=== PATIENT | male | born 1935 | race Caucasian/White ===

== ENCOUNTER 2018-08-30 13:50 | Inpatient (IN) ==
[2018-08-30 15:00] LABS: HEMATOCRIT 46.8 % (42.0-52.0); HEMOGLOBIN 16.3 g/dL (14.0-18.0); MCHC 34.8 g/dL (33-37); MCV 94.7 FL (81-99); MPV 9.7 FL (7.4-10.4); NEUT% 87.7 % (42.2-75.2); PLT 233 X1000 (130-400); RBC 4.94 XMIL (4.7-6.1); RDW 13.4 % (11.5-14.5); WBC 10.27 X1000 (4.8-10.8)
[2018-08-30 15:01] LABS: BASO# 0.02 X1000 (0.0-0.2); BASO% 0.2 % (0.0-0.8); IMM GRAN# 0.03 X1000 (0.0-0.04); IMM GRAN% 0.3 % (0.0-0.5); LYMPH# 0.58 X1000 (1.2-3.4); LYMPH% 5.6 % (20.5-51.1); MONO# 0.64 X1000 (0.11-0.59); MONO% 6.2 % (1.7-9.3)
[2018-08-30 15:02] LABS: INR 0.86; PROTIME 12.4 Seconds (11.0-16.0)
[2018-08-30 15:03] LABS: PTT 26.3 Seconds (22.3-41.8)
[2018-08-30 15:14] LABS: ALB/GLOB RATIO 2.3; ALBUMIN 4.2 g/dL (3.5-5.0); CALCIUM 10.2 mg/dL (8.8-10.2); CREATININE 1.4 mg/dL (0.7-1.2); POTASSIUM 4.2 mmol/L (3.5-5.1); TOTAL BILIRUBIN 0.74 mg/dL (0.20-1.00)
[2018-08-30] MEDS: ZOFRAN IV PRN (15:44)
[2018-08-30] MEDS: NS 1,000 ML IV SCH (15:44)
--- NOTE | 2018-08-30 16:36 | Diag Imaging Result Doc PS360 ---
EXAM: CT ABD/PELVIS W/ORAL CONT ONLY HISTORY: Intractable abdominal pain, N, V/ suspect SBO TECHNIQUE: CT abdomen and pelvis with oral contrast only COMPARISON: None. FINDINGS: There is thickening to the wall of the distal esophagus and there is a small hiatal hernia. No calcified gallstones or adjacent inflammation. No focal hepatic abnormality identified on this noncontrasted exam. The spleen is not enlarged. There is a small amount of fluid about the liver and spleen. Normal pancreas and adrenal glands. There are multiple parapelvic and cortical renal cysts. None measure over 2.5 cm. There is a tiny nonobstructing right renal stone. No hydronephrosis. No aortic aneurysm. Prominent atherosclerosis. There are multiple dilated loops of small bowel. The terminal ileum is not dilated. The colon is not dilated. Oral contrast has not passed through the small bowel. The urinary bladder is moderately distended. There are multiple surgical clips in the pelvis. Fat filled right inguinal hernia. IMPRESSION: 1.Early or partial small bowel obstruction. Transition point appears to be in the right lower quadrant. 2.Small amount of abdominal and pelvic ascites 3.Thickening to the wall of the distal esophagus with a small hiatal hernia 4.Nonobstructing right renal stone This exam was performed using automated exposure control, adjustment of mA or kV according to patient size, and/or use of iterative reconstruction technique. Electronically signed by Hussein Lara 08/30/2018 4:33 PM
[2018-08-30] MEDS ORDERED: PHENERGAN IV PRN ×2 (17:58→18:04)
[2018-08-30] MEDS ORDERED: ZOFRAN IV ONE (17:58)
[2018-08-30] MEDS ORDERED: SODIUM CHLORIDE 0.9% INJ PRN (17:58)
--- NOTE | 2018-08-30 21:51 | HISTORY AND PHYSICAL ---
PRIMARY CARE PHYSICIAN: Dr. Jeffy Ding. CHIEF COMPLAINT: Intractable abdominal pain, nausea, and vomiting. HISTORY OF PRESENT ILLNESS: An 83-year-old white male with a complicated past medical history presents for evaluation of above-mentioned symptoms. Pertinent history of present illness began on Sunday. At that time, patient states that he worked in his garden all day. By the evening, patient states he noted mild discomfort in his abdomen. Upon waking on , patient states his overall condition had progressed. The patient states he attempted to eat breakfast, but vomited immediately. Throughout the day, he attempted p.o. intake on several occasions, but unfortunately each of these resulted in vomiting. He noted a modest abdominal discomfort, but this was not intractable. The patient states his condition progressed yesterday evening with more intractable pain. The patient was driven to the emergency department but by the time he arrived, his pain had improved. He returned home. Today, he again awoke unable to tolerate p.o. He had not passed flatus or had a bowel movement since Sunday. Because of his progressive symptoms, he presented to my office. Upon arrival, examination revealed high-pitched bowel sounds. He was noted to be modestly distended. Patient was admitted to the hospital for full evaluation and management. CT scan was immediately performed which revealed early or partial small bowel obstruction with transition apparently in the right lower quadrant. A small amount of abdominal and pelvic ascites was identified. Thickening to the wall of the distal esophagus with a small hiatal hernia was also noted. The patient will be treated for underlying small-bowel obstruction. Of note, patient denies fevers, chills, dysuria, hematuria, or pyuria. As described above, he has not had a bowel movement or passed flatus since Sunday. PAST MEDICAL HISTORY: 1. Allergic rhinitis. 2. Diverticulosis. 3. History of presumed coronary artery disease with an elevated CT coronary calcium score. 4. History of H pylori status post eradication in 2007. 5. History of a left inguinal hernia repair in 1947, right inguinal hernia repair in 1995, revision left inguinal hernia repair in March 2016 and persistent right inguinal hernia without repeat repair to date. 6. Hyperlipidemia. 7. Hypertension. 8. Impaired fasting glucose. 9. History of borderline MCV. 10. History of melanoma in situ status post resection from the right shoulder in 2011. 11. Mild cognitive impairment. 12. Obstructive sleep apnea. 13. Osteoarthritis of the right knee. 14. History of colonic polyps. 15. History of prostate cancer status post radical prostatectomy in 1995. CURRENT MEDICATIONS: 1. Advil 200 mg daily as needed. 2. Amlodipine 7.5 mg daily. 3. Aspirin 81 mg daily. 4. Atorvastatin 20 mg at bedtime. 5. B complex vitamin daily. 6. Centrum Silver daily. 7. Coenzyme Q10 100 mg daily. 8. Fluticasone nasal spray 2 sprays each nostril daily as needed. 9. Hydrochlorothiazide 25 mg daily. 10. Labetalol 200 mg at bedtime. 11. Micardis 80 mg daily. ALLERGIES: The patient answered no known drug allergies. SOCIAL HISTORY: Patient denies tobacco or illicit drug use. He has approximately 2 glasses of wine per day. 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 He enjoys hunting, fishing, and gardening. He exercises every other day. FAMILY HISTORY: Patient's father passed at age 68 secondary to complications of metastatic prostate cancer. Patient's mother passed at age 81 secondary to complications of a stroke. REVIEW OF SYSTEMS: A 12 point review of systems was performed. Pertinent positives and negatives are noted in history of present illness. PHYSICAL EXAMINATION: VITAL SIGNS: Temperature 97.4 degrees, heart rate 73, respirations 14, blood pressure is 149/87. GENERAL: Well nourished, well developed, no acute distress. HEENT: Normocephalic, atraumatic. Pupils equal, round, react to light. Extraocular muscles intact. Sclerae anicteric. [place] conjunctivae. Oral and nasopharynx clear without exudate. NECK: Supple. No lymphadenopathy. No thyromegaly. No bruits auscultated. CARDIOVASCULAR: Regular rate and rhythm. No significant murmurs, rubs, or gallops. PULMONARY: Clear to auscultation bilaterally. ABDOMEN: Slightly distended. Diffusely tender without significant guarding or rebound. High- pitched bowel sounds. EXTREMITIES: Moves all extremities well. No significant clubbing, cyanosis, or edema. NEUROLOGIC: Cranial nerves 2-12 grossly intact. Motor and sensory grossly intact. PSYCHOLOGIC: Appropriate. LABORATORY DATA: White blood cell count 10.27, hemoglobin 16.3, hematocrit 46.8, platelet count 233,000. PT 12.4, INR 0.86, PTT is 26.3. Sodium 137, potassium 4.3, chloride 96, bicarb 29, BUN 29, creatinine 1.4, glucose 166, calcium 10.2, total bilirubin 0.74, total protein 6.0, albumin 4.2, alkaline phosphatase 116, AST 22, ALT 13, amylase 62, lipase 19. ASSESSMENT AND PLAN: An 83-year-old white male with past medical history as noted presents for evaluation of intractable abdominal discomfort with associated nausea and vomiting. Examination was concerning for small bowel obstruction with high-pitched bowel sounds. CT scan confirmed early or partial small bowel obstruction. Patient will be admitted to the hospital for full evaluation and management of this condition. 1. Admit to General Medicine. 2. Earlier partial small bowel obstruction-at this point, patient is unable tolerate p.o. We will start patient on aggressive but cautious IV hydration. We will treat nausea with as- needed Zofran therapy. At this point, the nausea and abdominal pain does not warrant a nasogastric tube, however we will have a low threshold should his symptoms progress. We will consult Dr. Dao in the a.m. for a surgical opinion. We will remain aware he does have an inguinal hernia on the right side which could be contributing, however this seems less likely without pain in the inguinal region. 3. Intractable nausea and vomiting-this is secondary to small-bowel obstruction. We will treat patient with IV fluids and as-needed Zofran therapy. 4. Hypertension. Patient's blood pressure is slightly elevated. We will continue to hold his medications for now. We will consider alternative agents depending on his blood pressure while hospitalized. 5. Impaired fasting glucose-we will continue to follow serial blood sugars. We will address if necessary. 6. Hyperlipidemia-we will hold patient's atorvastatin for now. 7. Fluid, electrolytes, nutrition. We will monitor electrolytes. Normal saline at 75 mL an hour, n.p.o. 8. Prophylaxis. Patient will be placed on SCDs. cc: Jeffy Ding MD
--- NOTE | 2018-08-31 03:20 | GENERAL SURGERY CONSULTATION ---
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 Rosa, who presents with approximately 48 hours of nausea, vomiting, and diminished bowel movements and flatus. He worked out in the yard on Sunday, became nauseated on , not really keeping anything down. He came to Dr. Aguayo's office today, he had contemplated ER visit, where CT scan was obtained that was consistent with partial obstruction. MEDICAL HISTORY: Has some early dementia, history of prostate cancer treated in the , he has also had recurrent hernias. SURGICAL HISTORY: He has had an open prostatectomy and, apparently, an appendectomy concurrently with this. He has had childhood right inguinal hernia and a subsequent repair in the , and a left inguinal hernia repair by Dr. Ram. SOCIAL HISTORY: No tobacco, alcohol, or drugs. He is . 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 FAMILY HISTORY: Reviewed. REVIEW OF SYSTEMS: Ten point negative. PHYSICAL EXAMINATION: Vital signs: Temperature 98.4 degrees, pulse 66, blood pressure 136/86, oxygen saturation 93% on room air. General: He is alert, no acute distress. HEENT: There is no scleral icterus. No cervical masses. Cardiovascular: Normal rate. Pulmonary: No increased work of breathing. Abdomen: Mildly distended, but soft, nontender. Integument: Warm and dry. He has a reducible right inguinal hernia. No left inguinal hernia noted. Peripheral vascular: Warm, well perfused. No lower extremity edema. Psychiatric: Appropriate affect. Neurological: He seemed appropriate, maybe some confusion at times. LABS: White count 10, hematocrit 46, platelets 233,000. Creatinine is 1.4 glucose 166. Albumin, amylase and lipase are within normal limits. LFTs are normal. I reviewed a CT scan that shows a transition point in the distal terminal ileum. He has some nonspecific fluid in the pelvis. ASSESSMENT AND PLAN: This is a 83-year-old gentleman with an apparent bowel obstruction. No further emesis, although he does have some hiccups. Currently, his exam is benign. We will observe him. If he were to vomit, we will need to place a nasogastric tube. I discussed the plans for nonoperative management with possible exploration if he were to continue to have obstructive symptoms despite a trial at bowel rest. We will keep him NPO. I have talked to Dr. Ding about the plan and will continue to monitor him going forward. cc: MD Jeffy Lind MD
[2018-08-31] MEDS: ZOFRAN IV PRN (03:35)
[2018-08-31] MEDS: NS 1,000 ML IV SCH ×2 (03:35→17:52)
--- NOTE | 2018-08-31 13:53 | PROGRESS NOTE ---
DATE: 08/31/2018 SUBJECTIVE: The patient was admitted yesterday with an early or partial small bowel obstruction. The patient was treated supportively with IV fluids and IV antiemetics. Unfortunately, despite this, patient continues to have increasing symptoms. Overnight, he vomited once. He also vomited this morning. He does note a slight increase in his abdominal distention, as well as some increasing pain. He denies fevers, chills, shortness of breath, or chest discomfort. OBJECTIVE: Vital Signs: T-max 98.4 degrees, heart rate 63 to 86 respirations 14 to 22, blood pressure 136 to 157 over 82 to 88. General: Well nourished, well developed, no acute distress. Cardiovascular: Regular rate and rhythm. No significant murmurs, rubs, or gallops. Pulmonary: Clear to auscultation bilaterally. Abdomen: Slightly distended. High-pitched bowel sounds. Mild tenderness diffusely without guarding or rebound. Extremities: Moves all extremities well. No significant clubbing, cyanosis, or edema. Dermatologic: Evaluation reveals no evidence of rash. LABORATORY DATA: None. ASSESSMENT AND PLAN: 1. Early or partial small bowel obstruction--unfortunately, patient is having increasing symptoms. Including abdominal distention and nausea/vomiting. The patient has not passed flatus or had a bowel movement. At this point, with progression of symptoms, we will have a nasogastric tube placed to intermittent low wall suction. I appreciate Dr. Dao's consultation. We will continue supportive care, but if the patient does not clear this in the next 48 hours, we will consider whether surgical intervention is appropriate. 2. Intractable nausea and vomiting--this is secondary to his small bowel obstruction. We will treat patient with nasogastric tube suction, as well as needed antiemetic agents. 3. Hypertension--the patient's blood pressure is moderately elevated today. At this point, we will continue to follow clinically as he is not taking oral. If this continues to rise, we will consider alternative agents. 4. Impaired fasting glucose--we will continue to follow patient's blood sugars while hospitalized. No intervention has been necessary today. 5. Hyperlipidemia--we will continue to hold patient's atorvastatin therapy. 6. Disposition--at this point, patient continues to require mcc care in a hospital setting. We will plan discharge home once appropriate. cc: Jeffy Ding MD
--- NOTE | 2018-08-31 18:26 | GENERAL SURGERY PROGRESS NOTE ---
DATE: 08/31/2018 SUBJECTIVE: He continues to have some belching. He had an episode of emesis overnight. No pain. No bowel function. No fevers. No tachycardia. OBJECTIVE: Blood pressure 157/82. General: He is alert. Abdomen is soft, mildly distended, stable from last night, nontender. Integument is warm and dry. LABORATORY DATA: Nothing new this morning. ASSESSMENT AND PLAN: An 83-year-old gentleman with a bowel obstruction. I have recommended nasogastric tube. He wants to wait a few hours, but unless he has dramatic return of bowel function, I think he is going to require it. I talked to Dr. Ding. As exam is benign, we will continue nonoperative management. cc: MD Jeffy Lind MD
[2018-09-01 06:41] LABS: BASO# 0.02 X1000 (0.0-0.2); BASO% 0.3 % (0.0-0.8); EOS# 0.08 X1000 (0.0-0.7); EOS% 1.2 % (0.0-10.0); HEMATOCRIT 43.5 % (42.0-52.0); HEMOGLOBIN 14.7 g/dL (14.0-18.0); IMM GRAN# 0.02 X1000 (0.0-0.04); IMM GRAN% 0.3 % (0.0-0.5); LYMPH# 0.66 X1000 (1.2-3.4); LYMPH% 10.2 % (20.5-51.1); MCH 32.7 PG (27-31); MCHC 33.8 g/dL (33-37); MCV 96.9 FL (81-99); MONO# 1.07 X1000 (0.11-0.59); MONO% 16.6 % (1.7-9.3); NEUT# 4.61 X1000 (1.4-6.5); NEUT% 71.4 % (42.2-75.2); PLT 212 X1000 (130-400); RBC 4.49 XMIL (4.7-6.1); RDW 13.6 % (11.5-14.5); WBC 6.46 X1000 (4.8-10.8)
[2018-09-01 07:08] LABS: ALB/GLOB RATIO 1.8; ALBUMIN 3.3 g/dL (3.5-5.0); CALCIUM 8.9 mg/dL (8.8-10.2); CREATININE 1.2 mg/dL (0.7-1.2); POTASSIUM 3.7 mmol/L (3.5-5.1); TOTAL BILIRUBIN 0.78 mg/dL (0.20-1.00); TOTAL PROTEIN 5.1 g/dL (6.3-8.3)
[2018-09-01] MEDS: NS 1,000 ML IV SCH (09:14)
--- NOTE | 2018-09-01 11:46 | GENERAL SURGERY PROGRESS NOTE ---
DATE: 09/01/2018 SUBJECTIVE: Had flatus overnight. His NG tube was pulled out by accident but, overall, he is doing well. No more nausea. Less bloated. No fevers. No tachycardia. OBJECTIVE: General: He is alert. Cardiovascular: Normal rate. Abdomen: Soft, nontender, nondistended. I reviewed his labs from today. His potassium is a little low at 3.7, creatinine is 1.2. His magnesium is 2.1. ASSESSMENT AND PLAN: This is an 83-year-old gentleman with apparent resolving bowel obstruction. We will keep him nothing per oral today, give him clear liquids tomorrow if he tolerates nasogastric tube removal. cc: MD Jeffy Lind MD
--- NOTE | 2018-09-01 12:01 | PROGRESS NOTE ---
DATE: 09/01/2018 SUBJECTIVE: Upon my arrival this morning, the patient states that overall, he was feeling improved from yesterday. In summary, over the last 24 hours, an NG tube was placed. The patient tolerated this quite well. The patient did note improvement in his overall condition. He passed minimal flatus while having the NG tube. Overnight, the patient unfortunately became confused during a dream, and self-discontinued his NG tube. Thereafter, the patient states he has done reasonably well. He denies nausea or vomiting. He has passed more flatus; however, not back to baseline. He denies fevers, chills, shortness of breath, or chest discomfort. OBJECTIVE: Vital Signs: T-max 98.8 degrees, heart rate 71 to 85, respirations 14 to 20, blood pressure 124 to 148/86 to 97. General: No acute distress. Cardiovascular: Regular rate and rhythm. No significant murmurs, rubs, or gallops. Pulmonary: Clear to auscultation bilaterally. Abdomen: Slightly distended. No significant tenderness to palpation. Bowel sounds have improved from yesterday, but continue to be slightly high pitched. Extremities: Moves all extremities well. No significant clubbing, cyanosis, or edema. Dermatologic: No evidence of rash. LABORATORY DATA: White blood cell count 6.46, hemoglobin 14.7, hematocrit 43.5, platelet count 212,000. Sodium 146, potassium 3.7, chloride 105, bicarb 31, BUN 30, creatinine 1.2, glucose 99, calcium 8.9. Magnesium 2.1. Total bilirubin 0.78, total protein 5.1, albumin 3.3, alkaline phosphatase 83, AST 18, ALT 10. ASSESSMENT AND PLAN: 1. Earlier partial small-bowel obstruction. As above, nasogastric tube was placed yesterday, but was self-discontinued overnight. As the patient is beginning to pass flatus and denies significant nausea, vomiting, or abdominal pain at the present time, we will continue to hold nasogastric tube suction. We will monitor the patient closely over the next 12 to 24 hours. If he continues to pass routine flatus, we will consider advancing diet. I appreciate Dr. Dao's consultation. 2. Intractable nausea and vomiting. As above, this has improved. We will continue symptomatic management for now. We will hold nasogastric tube suction for now. 3. Hypertension. The patient's blood pressure medications have been held. Blood pressure has been slightly elevated, but acceptable. We will continue to hold his medications for now. 4. Impaired fasting glucose. We will continue to monitor the patient's blood glucose levels. No intervention has been deemed warranted today. 5. Hyperlipidemia. We will continue to hold atorvastatin therapy. 6. Weakness. We will encourage activity and up in chair today. I suspect that with further movement, this may assist in the resolution of his small-bowel obstruction. 7. Disposition. At this point, the patient continues to require custodial care in a hospital setting. We will plan discharge home once appropriate. cc: Jeffy Ding MD
[2018-09-01] MEDS: 1/2 NS 1,000 ML IV SCH (13:30)
[2018-09-02] MEDS: 1/2 NS 1,000 ML IV SCH ×2 (02:45→16:50)
[2018-09-02 06:57] LABS: BASO# 0.02 X1000 (0.0-0.2); BASO% 0.4 % (0.0-0.8); EOS# 0.05 X1000 (0.0-0.7); EOS% 0.9 % (0.0-10.0); HEMATOCRIT 47.9 % (42.0-52.0); HEMOGLOBIN 16.3 g/dL (14.0-18.0); LYMPH# 0.48 X1000 (1.2-3.4); LYMPH% 9.1 % (20.5-51.1); MCH 32.6 PG (27-31); MCV 95.8 FL (81-99); MONO# 0.96 X1000 (0.11-0.59); MONO% 18.1 % (1.7-9.3); MPV 9.9 FL (7.4-10.4); NEUT# 3.79 X1000 (1.4-6.5); NEUT% 71.5 % (42.2-75.2); PLT 216 X1000 (130-400); RDW 13.6 % (11.5-14.5)
[2018-09-02 07:15] LABS: CALCIUM 9.1 mg/dL (8.8-10.2); CREATININE 1.2 mg/dL (0.7-1.2); POTASSIUM 3.5 mmol/L (3.5-5.1)
--- NOTE | 2018-09-02 16:31 | GENERAL SURGERY PROGRESS NOTE ---
DATE: 09/02/2018 SUBJECTIVE: His NG tube was placed last back last night, apparently for abdominal distention. He continues to pass flatus. No pain. No fevers. No tachycardia. OBJECTIVE: Blood pressure 156/92, O2 saturation is 94%. General: He is alert. Abdomen is soft. It is mildly distended, but no change from previous. Integument is warm and dry. DIAGNOSTIC STUDIES: White count 5, hematocrit 47. Creatinine is 1.2, potassium 3.5. I have ordered a small bowel follow-through, but this is pending. ASSESSMENT AND PLAN: This is an 83-year-old gentleman with partial obstruction. NG tube is in place. We will keep it since it is there for now, and I will get a small-bowel follow-through with contrast through the NG tube. If he shows no complete obstruction, we will continue to observe. Otherwise, if he shows a high-grade obstruction, we will plan for exploration in the next 24 to 48 hours. I have talked to Dr. Ding about this, as well as the patient. cc: MD Jeffy Lind MD
--- NOTE | 2018-09-02 18:29 | Diag Imaging Result Doc PS360 ---
EXAM: SMALL BOWEL SERIES ONLY 09/02/2018 HISTORY: Small bowel obstruction TECHNIQUE: Eight images. COMMENT: The study was carried out to six hours. At this time there is contrast throughout much of the small bowel with stool seen in the ascending colon. The entire visualized small bowel is distended. There is no evidence of mucosal fold thickening. The appearance is consistent with obstruction of the distal jejunum or proximal ileum as was demonstrated at the time the previous CT of the abdomen on 08/30/2018. IMPRESSION: Distal small bowel obstruction. Electronically signed by Russell Resendiz 09/02/2018 6:27 PM
--- NOTE | 2018-09-02 21:38 | PROGRESS NOTE ---
DATE: 09/02/2018 Upon my arrival this morning, patient had his NG tube replaced. The patient noted to have passed flatus. Later in the morning, patient did continue to have abdominal discomfort. A small-bowel followthrough was ordered. Small-bowel followthrough revealed a distal small-bowel obstruction. This evening, upon my arrival, patient continued to have abdominal distension. He does note having had a bowel movement. He is passing minimal flatus. He denies fevers, chills, shortness of breath, or chest discomfort. The patient does continue to have nausea and experienced an episode of vomiting while his NG tube was clamped. OBJECTIVE: T-max 98.4 degrees, heart rate 84 to 90, respirations 18 to 21, blood pressure 138 to 167 over 91 to 100.General: No acute distress. Cardiovascular: Regular rate and rhythm. No significant murmurs, rubs, or gallops. Pulmonary: Clear to auscultation bilaterally. Abdomen: Slightly distended. Mild tenderness diffusely. Improved bowel sounds. Extremities: Moves all extremities well. No significant clubbing, cyanosis, or edema. Dermatologic: Evaluation reveals no evidence of rash. LABORATORY DATA: White blood cell count 5.30, hemoglobin 16.3, hematocrit 47.9, platelet count 219,000. Sodium 147, potassium 3.5, chloride 103, bicarb 29, BUN 32, creatinine 1.2. Glucose 97, calcium 9.1. ASSESSMENT AND PLAN: 1. Small bowel obstruction-unfortunately, patient has not cleared this since hospitalization. He is passing a minimal amount of flatus and had a bowel movement, however, there does appear to be a persistent obstruction. I discussed case with Dr. Dao. Should patient not resolve this overnight, we will plan surgical intervention in the near future. 2. Intractable nausea and vomiting-patient has a nasogastric tube placed. We will continue this to intermittent low wall suction. 3. Hypertension-patient's blood pressure medications have been held. Blood pressure is slightly elevated. We will resume this once able. 4. Impaired fasting glucose-patient's glucose has been acceptable while hospitalized. We will remain aware. 5. Hyperlipidemia-patient's atorvastatin has been held. 6. Weakness-we will continue to encourage activity as tolerated. 7. Hypernatremia-patient was transitioned to half-normal saline yesterday. We will convert patient to Clinimix this evening. 8. Disposition-at this point, patient continues to require residential care in a hospital setting. We will plan discharge home once appropriate. cc: Jeffy Ding MD
[2018-09-02] MEDS: ZOFRAN IV PRN (23:49)
[2018-09-03] MEDS: SODIUM CHLORIDE IV SCH (06:43)
[2018-09-03] MEDS: CLINIMIX E IV SCH (06:43)
[2018-09-03] MEDS ORDERED: XYLOCAINE-MPF 2% ONE (07:39)
[2018-09-03] MEDS ORDERED: QUELICIN (DOSE) ONE (07:39)
[2018-09-03] MEDS ORDERED: DIPRIVAN 1% ONE (07:39)
--- NOTE | 2018-09-03 07:47 | GENERAL SURGERY CONSULTATION ---
DATE: 09/03/2018 SUBJECTIVE: Remains distended, having some colicky discomfort overnight. NG tube is in place with bilious output. On exam, he is afebrile. No tachycardia. He is sitting on the side of bed. His abdomen is soft. Blood pressure 148/97. He is mildly distended. Integument is warm and dry. He had labs yesterday that showed a normal white count. Creatinine was down to 1.2. Small-bowel follow-through shows high-grade distal small-bowel obstruction. ASSESSMENT AND PLAN: An 83-year-old gentleman with persistent bowel obstruction despite trials of nasogastric tube decompression and nonoperative management. I have discussed risks of bleeding, infection, possible bowel resection, and all indicated procedures. He has agreed to proceed today with exploratory laparotomy. 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 We have him on the schedule for later today. I have talked to Dr. Ding. cc: MD Jeffy Lind MD
[2018-09-03 07:57] LABS: CALCIUM 9.3 mg/dL (8.8-10.2); CREATININE 1.2 mg/dL (0.7-1.2); POTASSIUM 3.3 mmol/L (3.5-5.1)
[2018-09-03] MEDS ORDERED: EXPAREL 1.3% ONE (08:18)
[2018-09-03] MEDS ORDERED: MARCAINE 0.5% PF ONE (08:18)
[2018-09-03] MEDS ORDERED: INVANZ 1 GM/NS 1 GM/50 ML IVPB IV ONE (08:45)
[2018-09-03] MEDS ORDERED: EPHEDRINE ONE (09:26)
[2018-09-03] MEDS ORDERED: ZOFRAN ONE (09:35)
[2018-09-03] MEDS ORDERED: DECADRON ONE (09:35)
[2018-09-03] MEDS ORDERED: ROBINUL ONE (09:35)
[2018-09-03] MEDS ORDERED: NEOSTIGMINE ONE (09:36)
[2018-09-03] MEDS ORDERED: NEO-SYNEPHRINE ONE (09:40)
[2018-09-03 09:43] LABS: URINE SOURCE CATH
[2018-09-03 09:49] LABS: BILIRUBIN URINE SMALL (NEGATIVE); BLOOD URINE NEGATIVE (NEGATIVE); COLOR YELLOW; GLUCOSE URINE NEGATIVE (NEGATIVE); KETONE URINE 40 mg/dL (NEGATIVE); LEUKOCYTES URINE NEGATIVE (NEGATIVE); NITRITE URINE NEGATIVE (NEGATIVE); PH URINE 5.5; PROTEIN URINE 100 mg/dL (NEGATIVE); SP GRAVITY URINE 1.029; TURBIDITY URINE CLEAR (CLEAR); UROBILINOGEN URINE 2 mg/dL (NORMAL)
[2018-09-03 09:52] LABS: UR EPITHELIAL CELLS <10 /HPF (<10); URINE BACTERIA NEGATIVE /HPF; URINE RBC <10 /HPF (<10); URINE WBC <10 /HPF (<10)
[2018-09-03 10:02] LABS: URINE CASTS NONE SEEN
[2018-09-03] MEDS ORDERED: MORPHINE IV PRN (11:04)
[2018-09-03] MEDS: POTASSIUM CHLORIDE 20 MEQ/SWI 20 MEQ/100 ML IVPB IV SCH ×2 (11:46→15:59)
[2018-09-03] MEDS: LR 1,000 ML IV SCH (11:47)
--- NOTE | 2018-09-03 13:31 | OPERATIVE NOTE ---
PROCEDURE DATE: 09/03/2018 PREOPERATIVE DIAGNOSIS: Small-bowel obstruction. POSTOPERATIVE DIAGNOSIS: Small-bowel obstruction. PROCEDURE PERFORMED: Exploratory laparotomy and lysis of adhesions. ESTIMATED BLOOD LOSS: 20 mL. SPECIMENS: None. ANESTHESIA: General with a TAP block. 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 Almanza was present and facilitated exposure and identification of anatomy. INDICATIONS: This is an 83-year-old gentleman who has had a bowel obstruction for over the last several days. CT scan shows transition point. Small bowel follow-through showed persistent high- grade obstruction. OPERATIVE FINDINGS: There was a dense fibrotic band adjacent to a Meckel's diverticulum in the distal ileum. Otherwise, no significant intra-abdominal adhesions. Colon was normal. Liver was normal. The stomach was normal. No peritoneal lesions. Operative note, risks, benefits and alternatives were discussed. Patient consented to the procedure preoperatively and surgical site was confirmed. He was taken to the operating room and placed in supine position. General anesthesia induced. A TAP block was performed by Anesthesia. For details, please see dictated operative note. He had a nasogastric tube in place and placed in Aden catheter. The hair was removed with clippers and prepped with chlorhexidine solution and draped in usual sterile fashion. After time-out, a midline incision was made above the umbilicus. He had a lower midline scar and carried this down to the fascia, and incised the fascia along the midline entering the abdomen in an open controlled fashion. There was some reactive looking ascites noted, but no bile. No purulent ascites. We extended our incision cephalad and inferiorly and eviscerated the small bowel. We palpated an area of dense fibrotic band in the right lower quadrant. We mobilized this out. There were several areas of congested bowel here, but this was all well perfused with no ischemia. We lysed this band, freeing the obstruction. There was a wide-mouth Meckel's diverticulum in his area that showed no evidence of perforation. The adhesion was not related to the Meckel's. Appendix was normal. We placed everything back in neutral position, and irrigated the abdomen. We did milk the succus back toward the stomach, and decompressed this out of the nasogastric tube. We confirmed its position, placed omentum over the small bowel. Irrigated the abdomen with warm saline. The fascia was closed with a single strand of #1 PDS suture. After irrigating the superficial wound, we closed the skin with 4-0 Monocryl in subcuticular fashion. Dermabond was applied. He was woken and transferred to recovery room. I spoke to family. cc: MD Jeffy Lind MD
[2018-09-03] MEDS ORDERED: BLISTEX MEDICATED BERRY LIP BALM TOP PRN (16:02)
--- NOTE | 2018-09-03 22:12 | PROGRESS NOTE ---
DATE: 09/03/2018 SUBJECTIVE: This morning, patient was taken for exploratory laparotomy. The patient was found to have a fibrotic band adjacent to a Meckel's diverticulum in the distal ilium. The band was lysed freeing the obstruction. The patient tolerated this procedure quite well. This evening, patient states he is feeling reasonably well. His pain is controlled. He has an NG tube placed. He denies any significant nausea, fevers, chills, or shortness of breath. OBJECTIVE: T-max 98.5 degrees, heart rate 56 to 87, respirations 14 to 19, blood pressure 148 to 162 over 89 to 94.General: Well nourished, well developed, no acute distress. Cardiovascular: Regular rate and rhythm. No significant murmurs, rubs, or gallops. Pulmonary: Clear to auscultation bilaterally. Abdomen: Postoperative tenderness. Decreased bowel sounds. Extremities: Moves all extremities well. No significant clubbing, cyanosis, or edema. Dermatologic: Evaluation reveals no evidence of rash. LABORATORY DATA: Sodium 147, potassium 3.3, chloride 99, bicarb 32, BUN 35, creatinine 1.2, glucose 126, calcium 9.3. ASSESSMENT AND PLAN: 1. Small bowel obstruction - As above, patient is status post lysis of a fibrotic band. He tolerated this quite well. The patient has an NG tube placed. Minimal bowel sounds are appreciated on examination. We will continue postoperative course per Dr. Dao. 2. Intractable nausea and vomiting - The patient has control of symptoms with NG tube suction. We will continue. 3. Hypertension - Blood pressure is slightly elevated. At this point, intervention is not warranted. We will plan to resume his home medications at discharge. 4. Impaired fasting glucose - The patient's glucose has been acceptable while hospitalized. We will follow. 5. Hyperlipidemia - The patient's atorvastatin has been held. 6. Weakness - We will plan for patient to be up in chair tomorrow. We will consider whether physical therapy is appropriate. 7. Hypernatremia - Sodium remains slightly elevated at 147. We will continue to follow. 8. Disposition - At this point, the patient continues to require half-way care in a hospital setting. We will plan discharge home once appropriate. cc: Jeffy Ding MD
[2018-09-04] MEDS: CLINIMIX E IV SCH ×2 (04:30→15:51)
[2018-09-04] MEDS: SODIUM CHLORIDE IV SCH ×2 (04:30→15:51)
[2018-09-04] MEDS: LR 1,000 ML IV SCH (06:22)
[2018-09-04] MEDS ORDERED: LANOXIN IV SCH (09:00)
[2018-09-04 09:17] LABS: BASO# 0.01 X1000 (0.0-0.2); BASO% 0.3 % (0.0-0.8); EOS# 0.02 X1000 (0.0-0.7); EOS% 0.5 % (0.0-10.0); HEMATOCRIT 47.5 % (42.0-52.0); IMM GRAN# 0.02 X1000 (0.0-0.04); IMM GRAN% 0.5 % (0.0-0.5); LYMPH# 0.34 X1000 (1.2-3.4); LYMPH% 8.6 % (20.5-51.1); MCH 32.4 PG (27-31); MCHC 33.7 g/dL (33-37); MCV 96.2 FL (81-99); MONO# 0.69 X1000 (0.11-0.59); MONO% 17.5 % (1.7-9.3); MPV 10.4 FL (7.4-10.4); NEUT# 2.87 X1000 (1.4-6.5); NEUT% 72.6 % (42.2-75.2); PLT 208 X1000 (130-400); RBC 4.94 XMIL (4.7-6.1); RDW 13.4 % (11.5-14.5); WBC 3.95 X1000 (4.8-10.8)
[2018-09-04 09:49] LABS: AGAP 14; ALB/GLOB RATIO 1.5; ALKALINE PHOSPHATASE 69 U/L (32-122); BUN 32 mg/dL (8-22); CALCIUM 8.4 mg/dL (8.8-10.2); CHLORIDE 104 mmol/L (98-107); COSMO 300; CREATININE 1.1 mg/dL (0.7-1.2); ESTIMATED GFR > 60; GLUCOSE 142 mg/dL (70-104); GOT 20 U/L (10-34); GPT 9 U/L (10-44); POTASSIUM 3.7 mmol/L (3.5-5.1); SODIUM 146 mmol/L (136-145); TCO2 28 mmol/L (25-35); TOTAL BILIRUBIN 0.46 mg/dL (0.20-1.00)
[2018-09-04] MEDS ORDERED: CATAPRES-TTS-1 TD ONE (14:34)
--- NOTE | 2018-09-04 15:03 | PROGRESS NOTE ---
DATE: 09/04/2018 SUBJECTIVE: The patient is postoperative day #1 exploratory laparotomy and lysis of a fibrotic band affecting the distal ileum. The patient tolerated this procedure quite well. Overnight, patient states he rested well. He has not passed flatus nor had a bowel movement. Nausea is controlled with NG tube suction. He denies fevers, chills, shortness of breath, or chest discomfort. OBJECTIVE: Vital Signs: T-max 98.7, heart rate 56 to 102, respirations 14 to 19, blood pressure 148-178/89-106. General: Well nourished, well developed, no acute distress. Cardiovascular: Regular rate and rhythm. No significant murmurs, rubs or gallops. Pulmonary: Clear to auscultation bilaterally. Abdomen: Slightly distended. Postoperative tenderness. Decreased bowel sounds. Extremities: Moves all extremities well. No significant clubbing, cyanosis or edema. Dermatologic: Evaluation reveals no evidence of rash. LABORATORY DATA: White blood cell count 3.95, hemoglobin 16.0, hematocrit 47.5, platelet counts 208,000. Sodium 146, potassium 3.7 chloride 104 bicarb 28, BUN 32, creatinine 1.1, glucose 142, calcium 8.4. Total bilirubin 0.46, total protein 5.0, albumin 3.0, alkaline phosphatase 69, AST 20, ALT 9. ASSESSMENT AND PLAN: 1. Small bowel obstruction - As above, patient is postoperative day #1 exploratory laparotomy. NG tube is placed to intermittent low wall suction. Thus far, the patient has not passed flatus nor had a bowel movement. We will defer postoperative orders to Dr. Dao. 2. Intractable nausea and vomiting - The patient's symptoms are controlled with NG tube suction. We will continue as needed antiemetic agents. 3. Hypertension - Patient's blood pressure is trending upwards. We will start Norvasc therapy. With time, I suspect we will need to slowly titrate up on his home medications. 4. Impaired fasting glucose - Patient's blood sugar has been controlled while hospitalized. We will remain aware. 5. Hyperlipidemia - We will plan to resume atorvastatin therapy once able. 6. Weakness - We will encourage patient up in chair. We will consider adding physical therapy once able. 7. Hypernatremia - The patient's sodium has drifted down slightly with change to Clinimix. We will follow this. 8. Disposition - At this point, patient continues to require snf care in a hospital setting. We will plan discharge home once appropriate. cc: Jeffy Ding MD
[2018-09-04] MEDS ORDERED: SODIUM CHLORIDE 0.9% INJ SCH (18:45)
--- NOTE | 2018-09-04 19:47 | GENERAL SURGERY PROGRESS NOTE ---
DATE: 09/04/2018 SUBJECTIVE: Feeling okay. No flatus. NG tube still in place. No pain. No fevers. No tachycardia. OBJECTIVE: Vital signs: Blood pressure 178/94, O2 saturation low 90s on room air. General: He is alert. Abdomen: Is mildly distended. Incisions intact but soft, nontender. LABORATORY DATA: White count was 3 this morning, hematocrit 27, platelets 208,000. Creatinine is 1.1. ASSESSMENT AND PLAN: This is an 83-year-old gentleman status post exploratory laparotomy for bowel obstruction, lysis of adhesions. We will keep his NG tube pending resolution of his ileus. Start him on prophylactic Lovenox, proton pump inhibitor. I have talked to Dr. Ding. Otherwise, continue peripheral nutrition and IV fluids. cc: MD Jeffy Lind MD
[2018-09-04] MEDS ORDERED: CARDIZEM IV ONE (20:18)
--- NOTE | 2018-09-04 20:23 | PROGRESS NOTE ---
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 He is status post exploratory laparotomy for bowel obstruction and lysis of adhesions. He is still requiring an NG tube as he has a persistent postoperative ileus. While sitting up in a chair this evening, nursing staff noted that his heart rate was rapid. His heart rate was ranging from 145 to 167. An EKG demonstrated atrial fibrillation with RVR. 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 He denied any chest pain, tightness or pressure in his chest or shortness of breath. Dr. Olivo stated that he had never had episodes of atrial fibrillation in the past. He has no previous history of heart disease. OBJECTIVE: Vital signs: His blood pressure has been quite labile. Systolic blood pressures have ranged from 167 to 184 whereas his diastolic blood pressures have ranged from 94% to 99%. As he is in n.p.o., he is off his regular home dosages of labetalol and Norvasc. Temperature 97.4 degrees, pulse 147 irregular, respiratory rate 16, BP 167/99. Cardiovascular: Irregularly irregular. Lungs: Clear. Abdomen: Slightly distended but soft with hypoactive bowel sounds. ASSESSMENT AND PLAN: New onset atrial fibrillation. I will transfer the patient to the intensive care unit. I will give him diltiazem 10 mg IV load then begin a diltiazem drip per protocol. I will check TSH, free T4, magnesium, BMP and serial cardiac enzymes. We will arrange for a 2D echocardiogram with color Doppler and spectral flow Doppler studies in the morning. cc: MD Jeffy Lopez MD
[2018-09-04] MEDS: LOVENOX SUBQ SCH (20:28)
[2018-09-04] MEDS: CARDIZEM 125 MG/D5W 125 MG/125 ML IVPB IV SCH (20:41)
[2018-09-04] MEDS: PROTONIX IV SCH (21:39)
[2018-09-04] MEDS ORDERED: LANOXIN IV ONE (22:03)
--- NOTE | 2018-09-04 22:38 | PROGRESS NOTE ---
DATE: 09/04/2018 SUBJECTIVE: Mr. Olivo has new-onset atrial fibrillation with RVR. He remains in atrial fibrillation. Heart rate is trending down on IV diltiazem. Heart rate is still in the 120s and 130s, as opposed to the 160s. He denies any chest pain, shortness of breath or other anginal equivalents. His initial cardiac enzymes including CPK and troponin were within normal limits. OBJECTIVE: BP 108/87, respiratory rate 21, pulse 128 and irregular. CV: Irregularly irregular. Lungs clear. Abdomen soft but mildly distended. Hypoactive bowel sounds. ASSESSMENT AND PLAN: New-onset atrial fibrillation with rapid ventricular response. We will continue diltiazem drip per protocol. We will bolus him with intravenous digoxin. Thyroid studies are pending. Initial cardiac enzymes are negative. If he does not spontaneously convert, we certainly could consider using intravenous amiodarone. We will arrange for an echocardiogram as well as a cardiac consult in the morning. cc: MD Jeffy Lopez MD
[2018-09-04] MEDS ORDERED: STERILE WATER INJ. INJ ONE (23:20)
[2018-09-04] MEDS ORDERED: GEODON IM ONE (23:20)
[2018-09-05] MEDS: CLINIMIX E IV SCH ×3 (02:38→11:43)
[2018-09-05] MEDS: SODIUM CHLORIDE IV SCH ×3 (02:38→11:43)
[2018-09-05] MEDS: CARDIZEM 125 MG/D5W 125 MG/125 ML IVPB IV SCH ×2 (05:43→15:07)
[2018-09-05] MEDS: LR 1,000 ML IV SCH ×3 (05:59→22:32)
--- NOTE | 2018-09-05 08:05 | EKG Report ---
Test Performed on : 09/04/2018 7:16:20 PM Test Reason : NO EKG ORDER FOR MUSE Blood Pressure : / mmHG Vent. Rate : 148 BPM Atrial Rate : 153 BPM P-R Int : 000 ms QRS Dur : 080 ms QT Int : 254 ms P-R-T Axes : 000 058 263 degrees QTc Int : 398 ms Atrial fibrillation. with rapid ventricular response. Nonspecific ST and T wave abnormality Abnormal ECG When compared with ECG of 05-JUN-2017 07:01, Atrial fibrillation. has replaced Sinus rhythm. Vent. rate has increased BY [address] now depressed in Inferior leads ST now depressed in Anterior leads Nonspecific T wave abnormality now evident in Inferior leads Nonspecific T wave abnormality now evident in Anterolateral leads Confirmed by Jacinta EDWARDS, Davon Gavin ([id number]) on 09/05/2018 5:09:32 PM
[2018-09-05] MEDS: LANOXIN IV SCH (09:26)
[2018-09-05] MEDS ORDERED: NS 500 ML IV ONE (12:03)
--- NOTE | 2018-09-05 13:16 | CONSULTATION ---
DATE OF CONSULTATION: 09/05/2018 IMPRESSION: 1. Postoperative atrial fibrillation following recent abdominal procedure for lysis of adhesions after patient presented with small bowel obstruction. 2. Coronary atherosclerosis, asymptomatic. Previous stress myocardial perfusion study 02/11/2016 negative. Left ventricular ejection fraction normal. 3. Hypertension requiring multi-drug regimen for control. 4. Hyperlipidemia. 5. Prostate cancer with history of previous open prostatectomy. RECOMMENDATIONS: 1. Continue IV fluid replacement. 2. Control heart rate with IV diltiazem. 3. If atrial fibrillation persists, we will consider Lovenox and try and restore sinus rhythm with parental amiodarone. 4. Echocardiography. 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 He describes bilious emesis. He is found to have small-bowel obstruction. He underwent laparotomy with lysis of adhesions on 09/03/2018. He has postop ileus. Last night he went into atrial fibrillation with rapid ventricular rate. He is asymptomatic with this. He has moved to intensive care unit. He has been started on intravenous Cardizem for rate control. He has history of coronary atherosclerosis diagnosed radiographically, but he has never had angina. Stress myocardial perfusion study in February of 2016 was negative. He is fairly active without chest discomfort or shortness of breath. There is no history of previous cardiac arrhythmias or atrial fibrillation. PAST MEDICAL HISTORY: 1. Coronary atherosclerosis. 2. Hypertension. 3. Hyperlipidemia. 4. Prostate cancer and previous open prostatectomy. 5. Obstructive sleep apnea. 6. History of melanoma. 7. Hiatal hernia. 8. Diverticular disease of the colon. PAST SURGICAL HISTORY: Recent laparotomy with lysis of adhesions, left inguinal hernia repair, open prostatectomy, and removal of melanoma. ALLERGIES: He has no known drug allergies. MEDICATIONS PRIOR TO ADMISSION: As listed. 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 He is . He is a nonsmoker. He does not currently drink alcohol. 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 FAMILY HISTORY: Negative for premature coronary disease. REVIEW OF SYSTEMS: Pulmonary: Negative. Gastrointestinal: Noncontributory beyond history of present illness. Constitutional: Negative. REVIEW OF SYSTEMS: Remainder of the Review of Systems negative/noncontributory beyond history of present illness with 14 total systems reviewed. PHYSICAL EXAMINATION: General: This is a pleasant older white male in no distress. Vital signs: Blood pressure 120/81, heart rate 96 with ECG monitor showing atrial fibrillation with controlled ventricular rate response. Weight 171 pounds. HEENT: Extraocular movements appear intact. Mucous membranes moist. Neck: Supple without jugular venous distention. There are no carotid bruits. Chest: Clear to auscultation. Her exam was an irregular rate and rhythm without appreciable murmur or gallop. Abdomen: Soft. Nontender. Bowel sounds could not be heard. Extremities: Without edema. Neurologic: Exam reveals him to be alert and fully oriented. Speech is fluent. Moves all 4 extremities equally well. Skin: Warm and dry. Psychiatric: Reveals mood to be appropriate. DATA: A 12 lead EKG from last night demonstrates atrial fibrillation with heart rate of 140 beats per minute and nonspecific ST and T-wave abnormality. LABORATORY DATA: Sodium 146, potassium 3.7, chloride 104, carbon dioxide 28, BUN 32, creatinine 1.1, glucose 142, magnesium 2.1. CPK 150. Troponin T less than 0.01. Followup troponin T of 0.017. TSH 1.69. Amylase 62, lipase 19. White blood cell count 3.95, hematocrit 47.5, hemoglobin 16.2, and platelet count 208,000. cc: MD Jeffy Singleton MD
--- NOTE | 2018-09-05 13:16 | EKG Report ---
Test Performed on : 09/05/2018 12:32:57 PM Test Reason : afib Blood Pressure : / mmHG Vent. Rate : 087 BPM Atrial Rate : 091 BPM P-R Int : 000 ms QRS Dur : 082 ms QT Int : 352 ms P-R-T Axes : 000 049 153 degrees QTc Int : 423 ms Atrial fibrillation. Nonspecific T wave abnormality Abnormal ECG When compared with ECG of 04-SEP-2018 19:16, (Unconfirmed) Vent. rate has decreased BY 61 BPM Confirmed by Jacinta EDWARDS, Davon Gavin ([id number]) on 09/05/2018 5:10:12 PM
[2018-09-05] MEDS: LOVENOX SUBQ SCH (18:08)
[2018-09-05] MEDS: PROTONIX IV SCH (18:08)
[2018-09-05] MEDS ORDERED: SODIUM CHLORIDE 0.9% INJ SCH (19:30)
--- NOTE | 2018-09-05 20:17 | GENERAL SURGERY PROGRESS NOTE ---
DATE: 09/05/2018 SUBJECTIVE: He was transferred to ICU for atrial fibrillation with RVR. Is now rate controlled with diltiazem and digoxin. He also removed his NG tube accidentally overnight. No nausea. No flatus yet. No fevers. OBJECTIVE: Vital Signs: Pulse has been in the 90s. Blood pressure 120s to 130s. General: He is mentating well. Abdomen: Soft. Incision is intact. Mildly distended, but not significantly different. LABORATORY: He has had troponins that have been negative and TSH that was normal. ASSESSMENT AND PLAN: This is an 83-year-old gentleman status post exploratory laparotomy with lysis of adhesions for bowel obstruction. We will keep his nasogastric tube out for now. He has been monitored for his atrial fibrillation with rapid ventricular response, and currently he is in sinus rhythm. Will follow along. Will keep him n.p.o. and anticipate return of bowel function in the near future. cc: MD Jeffy Lind MD
[2018-09-05] MEDS: PEPCID IV SCH (20:23)
[2018-09-05] MEDS ORDERED: CORDARONE 360 MG/D5W 360 MG/200 ML IV.SOLN IV ONE (20:37)
[2018-09-05] MEDS ORDERED: CORDARONE IV ONE (20:38)
--- NOTE | 2018-09-05 20:41 | ECHO REPORT ---
ORDER DATE: 09/05/2018 REQUESTING PHYSICIAN: Dr. Norman West. INDICATION: Atrial fibrillation, new onset. M-MODE MEASUREMENTS: Left ventricle end diastole: 3.1. Left ventricle end systole: 2.2. Posterior wall: 0.9. Interventricular septum: 0.9. Left atrium: 3.6. Aortic diameter: 3.1. SUMMARY OF 2-DIMENSIONAL IMAGIN. Left ventricular function is hyperdynamic. Ejection fraction appears to be on the order of 65% to 70%. No wall motion abnormality noted. 2. The right ventricle appears to be normal. 3. The left atrium appears to be moderately enlarged on some of the views. 4. The aortic valve shows sclerosis of the cusps without stenosis. Color flow mapping unremarkable. 5. The mitral valve opens normally. Color flow mapping unremarkable. 6. Pulsed wave Doppler of mitral inflow shows a single filling wave. 7. The patient is in atrial fibrillation. 8. The tricuspid valve shows a mild degree of regurgitation. Pulmonary pressure is estimated to be roughly about 31 to 36 mmHg. 9. There is no pericardial effusion, no mass, and no thrombus. SUMMARY: This study shows: 1. Normal left ventricular function. 2. No evidence of any significant valvular abnormality. 3. Pulmonary pressure on the order of 31 to 36 mmHg. 4. The pulmonic valve is unremarkable. 5. There is no pericardial effusion, mass, or thrombus. 6. The left atrium appeared to be moderately enlarged on some of the views. Clinical correlation is strongly recommended. cc: MD Garrett Arias MD Scott A. Matthews, MD
[2018-09-06] MEDS ORDERED: CORDARONE 540 MG in D5W 289.2 ML IV ONE (02:37)
--- NOTE | 2018-09-06 07:03 | EKG Report ---
Test Performed on : 09/06/2018 06:48:42 AM Test Reason : afib Blood Pressure : / mmHG Vent. Rate : 086 BPM Atrial Rate : 073 BPM P-R Int : 000 ms QRS Dur : 086 ms QT Int : 350 ms P-R-T Axes : 000 032 005 degrees QTc Int : 418 ms Atrial fibrillation. Nonspecific T wave abnormality Abnormal ECG When compared with ECG of 05-SEP-2018 12:32, Nonspecific T wave abnormality no longer evident in Anterior leads Confirmed by Jacinta EDWARDS, Davon Gavin ([id number]) on 09/06/2018 12:30:33 PM
[2018-09-06] MEDS: LOVENOX SUBQ SCH ×2 (07:24→18:20)
--- NOTE | 2018-09-06 08:28 | PROGRESS NOTE ---
DATE: 09/05/2018 SUBJECTIVE: He is feeling better. His abdomen is feeling some rumbling. He has not passed any gas yet. He went into atrial fibrillation the evening before. He was moved to ICU. His rate is controlled. OBJECTIVE: Temperature 97.6 degrees, pulse 78, respirations 20, blood pressure 132/100. Pupils are equal. No distended neck veins. Lungs are clear in all lung ralph anterolateral. Cardiovascular with regular rhythm and rate without murmur or S3. Abdomen is soft. Skin is warm and dry. Good urine output. He was last night a little over 5 L. ASSESSMENT AND PLAN: 1. An 83-year-old status post exploratory laparotomy for bowel obstruction and lysis of adhesions. NG tube was put back in at his request for nausea, and is back out again today. He is feeling better. He went into atrial fibrillation. 2. Paroxysmal atrial fibrillation. Dr. Alverto Pedersen is following. He has postoperative atrial fibrillation following recent abdominal procedure for lysis of adhesions for which he has presented with small bowel obstruction. 3. Coronary atherosclerosis, asymptomatic. Myocardial infarction study done on 02/11/2016, which was negative. Left ventricular ejection fraction was normal. I am going to recheck his echo. 4. Hypertension. Requiring multidrug regimen for control. 5. Hyperlipidemia. 6. History of prostate cancer status post previous open prostatectomy. REVIEW OF ORDERS: I do not see any change. He is getting some Clinimix. He received digoxin 250 mcg IV which he will get daily. He was put on amiodarone drip. He is on Pepcid 20 mg IV q.24. Lactated Ringer's 75 mL q. hour. LABORATORY DATA: White count 3950, hematocrit 47, and platelet count 208,000. Troponin has been low less than 0.01. Thyroid appears normal. TSH is 1.69. Electrolytes: Sodium 146, potassium 3.7, chloride 104, BUN 32, and creatinine 1.1. cc: MD Jeffy Rowe MD
[2018-09-06] MEDS: LR 1,000 ML IV SCH ×3 (08:32→15:00)
[2018-09-06] MEDS: SODIUM CHLORIDE IV SCH (08:34)
[2018-09-06] MEDS: CLINIMIX E IV SCH (08:34)
[2018-09-06] MEDS: LANOXIN IV SCH (08:34)
--- NOTE | 2018-09-06 09:25 | PROGRESS NOTE ---
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 Bowels are moving. No nausea. No chest pain. Still in atrial fibrillation, but the rate is controlled. OBJECTIVE: Vital Signs: Temperature 97.6 degrees, pulse 80, respirations 20, blood pressure 150/110. HEENT: Pupils are equal and round. Lungs: Clear in all lung ralph. Cardiovascular: Regular rhythm and rate without murmur or S3. Abdomen: Soft. Skin: Warm and dry. Urine output 4700 mL. ASSESSMENT AND PLAN: 1. Status post exploratory laparotomy for bowel obstruction, lysis of adhesion. NG tube is out. Bowels are moving. He is passing gas. Advance diet per Surgery. 2. Paroxysmal atrial fibrillation, followed by Dr. Pedersen postoperative. Hopefully, this will go back into sinus rhythm. He is on amiodarone. 3. Coronary artery disease, asymptomatic. Myocardial infarction study done on 02/11/2016, which was negative. Left ventricular ejection fraction is normal. Good performance in the left ventricle. 4. Hypertension. 5. Hyperlipidemia. 6. History of prostate cancer status post previous prostatectomy. REVIEW OF HIS ORDERS: Lab from yesterday reviewed. Check electrolytes again in today in the morning. cc: MD Jeffy Rowe MD
[2018-09-06 11:23] LABS: AGAP 10; BUN 23 mg/dL (8-22); CALCIUM 8.9 mg/dL (8.8-10.2); CHLORIDE 104 mmol/L (98-107); COSMO 286; CREATININE 0.9 mg/dL (0.7-1.2); ESTIMATED GFR > 60; GLUCOSE 113 mg/dL (70-104); MAGNESIUM 2.1 mg/dL (1.5-2.7); POTASSIUM 4.2 mmol/L (3.5-5.1); SODIUM 141 mmol/L (136-145); TCO2 27 mmol/L (25-35)
[2018-09-06] MEDS ORDERED: CATAPRES-TTS-2 TD SCH (15:30)
--- NOTE | 2018-09-06 17:23 | PROGRESS NOTE ---
DATE: 09/06/2018 SUBJECTIVE: Patient denies chest discomfort or dyspnea. He continues in atrial fibrillation with controlled rate. OBJECTIVE: Blood pressure 163/110, heart rate 89 and irregular. Oxygen saturation 95%. ECG monitor shows atrial fibrillation with controlled rate response. There is no significant jugular distention.Chest: Clear to auscultation. Cardiac: Reveals an irregular rate and rhythm without appreciable murmur or gallop. Abdomen: Soft. Bowel sounds are audible. There is no evidence of peripheral edema. IMPRESSION: 1. Postoperative atrial fibrillation. 2. Status post abdominal procedure for lysis of adhesions after patient presented with small bowel obstruction. 3. Coronary atherosclerosis with no history of angina. 4. Hypertension requiring multi-drug regimen for control. 5. Hyperlipidemia. 6. Prostate cancer with history of previous open prostatectomy. RECOMMENDATIONS: 1. Continue intravenous amiodarone and transition to oral amiodarone as soon as patient is able to tolerate p.o. 2. Continue Lovenox 1 mg/kg subcu q.12h until sinus rhythm re- emerges. 3. Try and utilize clonidine patch to help with blood pressure while patient is NPO. cc: MD Jeffy Singleton MD
--- NOTE | 2018-09-06 20:36 | GENERAL SURGERY PROGRESS NOTE ---
DATE: 09/06/2018 SUBJECTIVE: Doing well. Started passing gas last night. Atrial fibrillation has been well controlled. No nausea. No fevers. No tachycardia. OBJECTIVE: Exam: Abdomen is soft. Incisions intact. LABORATORY: Reviewed his labs. ASSESSMENT AND PLAN: An 83-year-old gentleman status post exploratory laparoscopy with lysis of adhesions. We will give him a clear liquid. From a surgical standpoint, transfer out of the ICU. Overall, I think he is doing well. Will advance the diet as tolerated. Dr. Ram is following the patient for the weekend. Otherwise, I am available as needed. cc: MD Jeffy Lind MD
[2018-09-06] MEDS: PEPCID IV SCH (20:48)
[2018-09-07] MEDS: LR 1,000 ML IV SCH ×4 (02:12→16:32)
[2018-09-07] MEDS: CLINIMIX E IV SCH (02:12)
[2018-09-07] MEDS: SODIUM CHLORIDE IV SCH (02:12)
[2018-09-07] MEDS: LOVENOX SUBQ SCH ×2 (05:32→17:37)
[2018-09-07 06:18] LABS: HEMOGLOBIN 14.1 g/dL (14.0-18.0); WBC 5.85 X1000 (4.8-10.8)
[2018-09-07 06:19] LABS: BASO# 0.01 X1000 (0.0-0.2); BASO% 0.2 % (0.0-0.8); EOS# 0.28 X1000 (0.0-0.7); EOS% 4.8 % (0.0-10.0); IMM GRAN# 0.06 X1000 (0.0-0.04); LYMPH# 0.72 X1000 (1.2-3.4); LYMPH% 12.3 % (20.5-51.1); MCHC 33.6 g/dL (33-37); MCV 95.5 FL (81-99); MONO# 0.71 X1000 (0.11-0.59); MONO% 12.1 % (1.7-9.3); MPV 10.2 FL (7.4-10.4); NEUT# 4.07 X1000 (1.4-6.5); NEUT% 69.6 % (42.2-75.2); PLT 190 X1000 (130-400); RDW 12.9 % (11.5-14.5)
[2018-09-07 06:48] LABS: AGAP 8; BUN 19 mg/dL (8-22); CALCIUM 7.8 mg/dL (8.8-10.2); CHLORIDE 104 mmol/L (98-107); COSMO 282; CREATININE 0.8 mg/dL (0.7-1.2); ESTIMATED GFR > 60; GLUCOSE 137 mg/dL (70-104); POTASSIUM 4.6 mmol/L (3.5-5.1); SODIUM 139 mmol/L (136-145); TCO2 27 mmol/L (25-35)
[2018-09-07] MEDS: LANOXIN IV SCH (08:07)
--- NOTE | 2018-09-07 08:43 | PROGRESS NOTE ---
DATE: 09/07/2018 SUBJECTIVE: Mr. Olivo had a little bit of a rough day yesterday, just said frequent urination. He is passing loose stool, passing gas, remains afebrile. OBJECTIVE: Vital Signs: Temperature 98.3 degrees, pulse 108 respirations 35, blood pressure 157/123. Blood pressures have ranged between 132 to 157/89 to 123. Lungs: Clear in all lung ralph. Cardiovascular exam: Regular rhythm and rate without murmur or S3. Abdomen: Soft, nondistended. Positive bowel sounds. Extremities: Without clubbing, cyanosis, or edema. : Urine output is 2100 mL. ASSESSMENT AND PLAN: 1. Status post exploratory laparoscopy with lysis of adhesions. Continue on clear liquids. Can transfer out of intensive care unit to regular floor when a bed is available. We will advance diet per Surgery as tolerated. 2. Postoperative atrial fibrillation. He is still in atrial fibrillation. Rate is controlled. He is currently on amiodarone intravenous. He is on digoxin 250 mcg intravenous daily. We do have him anticoagulated with Lovenox at 80 mg subcutaneous every 12 hours. Hopefully will convert to sinus rhythm. 3. History of coronary artery disease, myocardial infarction study back in February 2016 was negative. Left ventricular ejection fraction was normal. Good performance in the left ventricle. 4. Hypertension. 5. Hyperlipidemia. 6. History of prostate cancer status post prostatectomy. I think with his blood pressure running a little high and his heart rate, I am going to start him on some metoprolol twice a day oral, and see if we can maybe convert to sinus rhythm. LAB: Looks good. White count 5850, hematocrit is 42, platelet count is 190,000. Chemistries: Sodium 139, potassium 4.6, chloride 104. BUN is 19, creatinine 0.8. cc: MD Jeffy Rowe MD
[2018-09-07] MEDS: LOPRESSOR PO SCH ×2 (08:45→21:05)
--- NOTE | 2018-09-07 13:12 | PROGRESS NOTE ---
DATE: 09/07/2018 Mr. Russell Olivo is now in hospital day #8. He underwent exploratory laparotomy per Dr. Dao for a small-bowel obstruction. He has been hospitalized in the ICU and has had some confusion. Overnight he has had multiple loose stools. His white blood cell count is normal. Hematocrit is 42%. Electrolytes are within normal limits. He seems oriented now, his and son were at the bedside. He has no NG tube, nasal cannula in place. His heart rate is 67, blood pressure was elevated at 189/111, O2 saturation 94%. His abdomen is still somewhat distended but not tightly so. He is on clear liquids and I will advance his diet to full liquids. We will stop his Clinimix at the end of this bag. We are going to have to look to transfer him to the floor soon. cc: MD Jeffy Koch MD
[2018-09-07] MEDS: PEPCID IV SCH (21:05)
[2018-09-08] MEDS: LR 1,000 ML IV SCH ×4 (02:00→20:03)
[2018-09-08] MEDS: LOVENOX SUBQ SCH ×2 (05:28→18:13)
[2018-09-08] MEDS: LOPRESSOR PO SCH ×2 (08:25→21:38)
[2018-09-08] MEDS: LANOXIN IV SCH (08:25)
--- NOTE | 2018-09-08 08:49 | PROGRESS NOTE ---
DATE: 09/08/2018 SUBJECTIVE: Patient of Dr. Jeffy Ding. He is doing better. He is still in ICU 5. He says he feels better. His bowels are moving. He has had several bowel movements. He is passing gas. His abdomen is soft. Remains afebrile. OBJECTIVE: Temperature 98.3 degrees, pulse 80, respirations 16, blood pressure 122/90. Pupils are equal and round. Lungs are clear in all lung ralph. Cardiovascular Examination: Regular rhythm and rate without murmur or S3. Urine output is 2700 mL. ASSESSMENT AND PLAN: 1. Status post exploratory laparoscopy with lysis of adhesions. He is making good advances. Bowels are working. 2. Postoperative atrial fibrillation, still in atrial fibrillation. Rate is controlled. He is on Lovenox at high dose Lovenox and getting digoxin intravenously. He is getting amiodarone intravenously. Actually, I think has stopped the amiodarone and he is on Cardizem intravenously. 3. History of coronary artery disease. Myocardial infarction workup or study back in 2016 was negative. Left ventricular function is normal. Good performance of his left ventricle. 4. Hypertension. 5. Hyperlipidemia. 6. History of prostate cancer, status post prostatectomy. 7. His blood pressures are doing better. We are trying to move him to a room. I would like to get him in a private room so I think the plan was to change him to oral amiodarone. Cardiology is following. However, intravenous amiodarone has been stopped and we are just on Cardizem at this time. cc: MD Jeffy Rowe MD
[2018-09-08 09:23] LABS: URINE SOURCE CLEAN CATCH
--- NOTE | 2018-09-08 09:23 | PROGRESS NOTE ---
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 His bowel activity is returning. He still has confusion, especially at night. C. difficile toxin was sent yesterday and it is negative. This morning, he is awake. His abdomen is mostly soft. His wound is intact and healing well. His heart rate is 80, blood pressure 122/90, O2 saturation 96%. We are going to send him to the floor. He is on a heart healthy diet. Physical therapy is seeing the patient. cc: MD Jeffy Koch MD
[2018-09-08 09:39] LABS: BILIRUBIN URINE NEGATIVE (NEGATIVE); BLOOD URINE NEGATIVE (NEGATIVE); COLOR YELLOW; GLUCOSE URINE NEGATIVE (NEGATIVE); KETONE URINE NEGATIVE (NEGATIVE); LEUKOCYTES URINE NEGATIVE (NEGATIVE); NITRITE URINE NEGATIVE (NEGATIVE); PROTEIN URINE NEGATIVE (NEGATIVE); SP GRAVITY URINE 1.007; TURBIDITY URINE CLEAR (CLEAR); UROBILINOGEN URINE NORMAL (NORMAL)
[2018-09-08 09:43] LABS: UR EPITHELIAL CELLS <10 /HPF (<10); URINE BACTERIA NEGATIVE /HPF; URINE RBC <10 /HPF (<10); URINE WBC <10 /HPF (<10)
[2018-09-08] MEDS ORDERED: CALMOSEPTINE OINTMENT TOP PRN (12:50)
[2018-09-08] MEDS: PEPCID IV SCH (21:38)
[2018-09-09] MEDS: LR 1,000 ML IV SCH ×3 (06:25→20:40)
[2018-09-09] MEDS: LOVENOX SUBQ SCH ×2 (06:25→18:00)
--- NOTE | 2018-09-09 09:21 | PROGRESS NOTE ---
DATE: 09/09/2018 SUBJECTIVE: Mr. Olivo is doing better. His bowels are moving. Abdomen is soft. He remains afebrile. He is still in atrial fibrillation. His rate is controlled. OBJECTIVE: Vital Signs: Temp 98 degrees, pulse 77, respirations 20, blood pressure 144/95. HEENT: Pupils are equal and round. Lungs: Clear in all lung ralph. Cardiovascular: Regular rhythm and rate without murmur or S3. Abdomen: Soft. Skin: Warm and dry. Urine output was 2300 mL. ASSESSMENT AND PLAN: 1. Status post exploratory laparoscopy with lysis of adhesions for small-bowel obstruction. He is making good advances. His bowels are working. Abdomen is soft. 2. Postoperative atrial fibrillation. Blood pressure is running a little high, which gives us a little bit of room to, I think, go up on his beta beverly. He is on digoxin 250 mcg intravenously daily, and will probably switch that to by mouth, and I am going to go up on the metoprolol to 50 mg every 8 hours. Continue his physical therapy. 3. History of coronary artery disease. No sign of active ischemia. Left ventricular function is good. 4. Hypertension. 5. Hyperlipidemia. 6. Prostate cancer in the past, status post prostatectomy. cc: MD Jeffy Rowe MD
[2018-09-09] MEDS: LANOXIN PO SCH (10:26)
[2018-09-09] MEDS: LOPRESSOR PO SCH ×2 (10:27→18:00)
--- NOTE | 2018-09-09 20:19 | GENERAL SURGERY PROGRESS NOTE ---
DATE: 09/09/2018 SUBJECTIVE: Doing well. No fevers. No tachycardia. Intermittently in atrial fibrillation, but he is rate controlled. OBJECTIVE: Blood pressure has been okay. His abdomen is soft. Incision intact. He is having bowel function. I reviewed his labs. Nothing new today. ASSESSMENT AND PLAN: An 83-year-old gentleman who is status post exploratory laparotomy and lysis of adhesions. Cardiologists are planning cardioversion tomorrow. From a surgical standpoint, I would be okay with discharge pending cardiac management. Continue to advance the diet and activity as tolerated. cc: MD Jeffy Lind MD
[2018-09-09] MEDS: PEPCID IV SCH (20:40)
[2018-09-10] MEDS: LR 1,000 ML IV SCH ×2 (00:29→12:52)
[2018-09-10] MEDS: LOPRESSOR PO SCH ×3 (01:19→18:22)
[2018-09-10 06:13] LABS: HEMATOCRIT 40.9 % (42.0-52.0); HEMOGLOBIN 13.6 g/dL (14.0-18.0); MCH 32.6 PG (27-31); MCHC 33.3 g/dL (33-37); MCV 98.1 FL (81-99); MPV 10.2 FL (7.4-10.4); RBC 4.17 XMIL (4.7-6.1); RDW 13.3 % (11.5-14.5); WBC 5.72 X1000 (4.8-10.8)
[2018-09-10 06:18] LABS: INR 0.92; PROTIME 13.2 Seconds (11.0-16.0)
[2018-09-10 06:30] LABS: AGAP 8; BUN 14 mg/dL (8-22); CALCIUM 8.1 mg/dL (8.8-10.2); CHLORIDE 102 mmol/L (98-107); COSMO 281; ESTIMATED GFR > 60; GLUCOSE 87 mg/dL (70-104); MAGNESIUM 1.7 mg/dL (1.5-2.7); POTASSIUM 4.4 mmol/L (3.5-5.1); SODIUM 141 mmol/L (136-145); TCO2 31 mmol/L (25-35)
--- NOTE | 2018-09-10 07:19 | EKG Report ---
Test Performed on : 09/10/2018 07:00:03 AM Test Reason : afib Blood Pressure : / mmHG Vent. Rate : 071 BPM Atrial Rate : 085 BPM P-R Int : 000 ms QRS Dur : 082 ms QT Int : 304 ms P-R-T Axes : 000 065 204 degrees QTc Int : 330 ms Atrial fibrillation. Nonspecific T wave abnormality Abnormal ECG When compared with ECG of 06-SEP-2018 06:48, QT has shortened Confirmed by Jeffy Ding MD ([id number]) on 09/10/2018 9:23:31 PM
[2018-09-10] MEDS ORDERED: ANESTHESIA PB SET 88 IN 5742 ONE (09:51)
[2018-09-10] MEDS ORDERED: NS 1,000 ML ONE (09:51)
[2018-09-10] MEDS ORDERED: DIPRIVAN 1% ONE (09:53)
[2018-09-10] MEDS ORDERED: XYLOCAINE-MPF 1% 5 ML ONE ×2 (09:54)
[2018-09-10] MEDS ORDERED: XYLOCAINE 2% VISCOUS ONE (09:57)
--- NOTE | 2018-09-10 12:06 | EKG Report ---
Test Performed on : 09/10/2018 12:00:16 PM Test Reason : for discharge Blood Pressure : / mmHG Vent. Rate : 055 BPM Atrial Rate : 055 BPM P-R Int : 166 ms QRS Dur : 082 ms QT Int : 390 ms P-R-T Axes : 101 131 095 degrees QTc Int : 373 ms Suspect arm lead reversal, interpretation assumes no reversal Sinus bradycardia. with sinus arrhythmia. Lateral infarct , age undetermined Abnormal ECG When compared with ECG of 10-SEP-2018 07:00, (Unconfirmed) Sinus rhythm. has replaced Atrial fibrillation. QRS axis shifted right Nonspecific T wave abnormality, improved in Lateral leads Confirmed by Jeffy Ding MD ([id number]) on 09/10/2018 9:34:10 PM
--- NOTE | 2018-09-10 12:17 | GENERAL SURGERY PROGRESS NOTE ---
DATE: 09/10/2018 SUBJECTIVE: Going for cardioversion today. Otherwise, doing well. Bowels are functioning. OBJECTIVE: No fevers. No tachycardia. Abdomen is soft. Skin is warm and dry. White count is normal. Creatinine is 1.0. ASSESSMENT AND PLAN: This is an 83-year-old gentleman status post exploratory laparotomy with lysis of adhesions. He had atrial fibrillation with rapid ventricular response. Cardiology plans to cardiovert him today. We will defer disposition to the Medical and Cardiology Services. Otherwise, surgically, he is doing very well. cc: MD Jeffy Lind MD
[2018-09-10] MEDS: LANOXIN PO SCH (12:51)
[2018-09-10] MEDS: ELIQUIS PO SCH ×2 (12:51→19:02)
--- NOTE | 2018-09-10 17:43 | PROGRESS NOTE ---
DATE: 09/10/2018 SUBJECTIVE: Patient continues without chest discomfort or shortness of breath on room air. He had a transesophageal echocardiography/cardioversion earlier today and continues in sinus rhythm. OBJECTIVE: Vital signs: Blood pressure 145/83, heart rate 62. Neck: There is no significant jugular venous distention. Chest: Clear to auscultation. Cardiac Exam: Reveals a regular rate and rhythm without appreciable murmur or gallop. There is no evidence of peripheral edema. LABORATORY DATA: Includes a white blood cell count of 5.72, hematocrit 40.9, hemoglobin 13.6, platelet count 198,000. Sodium 141, potassium 4.4, chloride 102, carbon dioxide 31, BUN 14, creatinine 1.0. IMPRESSIONS: 1. Postoperative atrial fibrillation. Patient now status post ELOY cardioversion and continues in sinus rhythm. 2. Status post abdominal procedure for lysis of adhesions after patient presented with small bowel obstruction. 3. Coronary atherosclerosis with no history of angina. 4. Hypertension. 5. Hyperlipidemia. 6. Prostate cancer with history of previous open prostatectomy. RECOMMENDATIONS: 1. Continue Eliquis at current dose for another 3 or 4 weeks. If no recurrence of atrial fibrillation, Eliquis could reasonably be discontinued. 2. Transition back to his usual antihypertensive regimen. Metoprolol to be discontinued and patient to be resumed on labetalol. Other antihypertensive medications to be added as required. 3. Reasonable for patient to be discharged to home soon. I would be glad to see him for followup with ECG in approximately 2 weeks. cc: MD Jeffy Singleton MD
[2018-09-10 18:05] VITALS: BP 137/82
--- NOTE | 2018-09-10 22:04 | DISCHARGE SUMMARY ---
ADMISSION DATE: 08/30/2018 DISCHARGE DATE: 09/10/2018 ADMISSION DIAGNOSES: 1. Intractable abdominal pain. 2. Nausea. 3. Vomiting. DISCHARGE DIAGNOSES: 1. Small bowel obstruction status post surgical intervention with lysis of adhesions. 2. Intractable nausea and vomiting, resolved. 3. Postoperative atrial fibrillation with rapid ventricular response. 4. Hypertension, present on arrival. 5. Impaired fasting glucose, present on arrival. 6. Hyperlipidemia, present on arrival. CONSULTATIONS: None. PROCEDURES: 1. CT scan of the abdomen, pelvis was performed on 08/30/2018 which revealed earlier partial small bowel obstruction. The transition point appears to be in the right lower quadrant. 2. Exploratory laparotomy with lysis of adhesions was performed on 08/30/2018. 3. Cardioversion was performed on 09/10/2018. HISTORY AND PHYSICAL EXAM: See admit note. PHYSICAL EXAMINATION: Prior to discharge. Temperature 98.2 degrees, heart rate 74, respirations 14, blood pressure is 137/82. General: Well nourished, well developed, no acute distress. Cardiovascular: Regular rate and rhythm. No significant murmurs, rubs, or gallops. Pulmonary: Clear to auscultation bilaterally. Abdomen: Soft, nontender, nondistended. Positive bowel sounds. Extremities: Moves all extremities well. No significant clubbing, cyanosis, or edema. Dermatologic: Reveals no evidence of rash. LABORATORY DATA: White blood cell count 5.72, hemoglobin 13.6, hematocrit 40.9, platelet count 198,000. PT is 13.2. INR 0.92. Sodium 141, potassium 4.4, chloride 102, bicarb 31, BUN 14, creatinine 1.0, glucose 87, calcium 8.1, magnesium 1.7. HOSPITAL COURSE: Patient was admitted as per history and physical examination. Hospital course per condition is as follows. 1. Small-bowel obstruction-upon admission, patient was noted to have a partial small bowel obstruction. Patient attempted conservative measures with symptomatic management and IV fluids. Unfortunately, this proved ineffective. Ultimately, patient required exploratory laparotomy by Dr. Dao. Patient tolerated this procedure quite well. Postoperative course was complicated only by that of a postoperative ileus. With time, this has resolved. As an outpatient, patient will slowly increase his diet. 2. Intractable nausea and vomiting-this is a consequence of patient's small-bowel obstruction. Early in hospitalization, patient was treated with NG suction. With surgical intervention, patient has achieved resolution. 3. Hypertension-patient's blood pressure trended upwards while in p.o. Patient was started on a clonidine patch. With the clonidine patch and beta blockade as described for atrial fibrillation, blood pressures remained reasonably controlled. We will transition patient back to his home medications as an outpatient. We will additionally start amlodipine and labetalol. As blood pressure is monitored and if this remains elevated, telmisartan and hydrochlorothiazide will subsequently be added. 4. Impaired fasting glucose-patient's blood sugars remained reasonably controlled while hospitalized. 5. Hyperlipidemia-patient will resume atorvastatin therapy as an outpatient. 6. Atrial fibrillation with rapid ventricular response-unfortunately, this occurred in the postoperative period. Patient was initially placed on a Cardizem drip. Cardiology was consulted. Because of persistent symptoms, a cardioversion was performed on the day of discharge. The patient tolerated this quite well. The patient will be discharged home in a sinus-generated rhythm. 7. Weakness-we discussed this in detail. This hospitalization will likely require several weeks to recover. We will encourage activity as tolerated. DISCHARGE CONDITION: Good. DISPOSITION: Discharge to home. MEDICATIONS: 1. Eliquis 5 mg twice daily. 2. Hydrochlorothiazide 25 mg daily. 3. Labetalol 200 mg at bedtime. 4. Telmisartan 80 mg daily. 5. Amlodipine 7.5 mg daily. 6. Atorvastatin 20 mg at bedtime. FOLLOWUP: The patient is to follow up with me in approximately 1 week. cc: Jeffy Ding MD
--- NOTE | 2018-09-11 08:55 | Transesophageal Echocardiogram ---
ORDER DATE: 09/10/2018 INDICATION: Patient with persistent atrial fibrillation. DESCRIPTION: The patient was consented about this procedure by Dr. Pedersen on September 09. The patient was brought to the cardiac medical laboratory assistant in the fasting state. He received intravenous propofol under the anesthesia services of Dr. Gomez. His throat was anesthetized with viscous Xylocaine and Hurricaine. The esophagus was intubated without difficulty. Multiple tomographic views of the cardiac structures were obtained. SUMMARY OF MAIN FINDINGS: 1. The left atrium shows evidence of a moderate degree of spontaneous echocontrast. The left atrial appendage is well visualized, and the flow velocities appear to be on the order of 41 cm/sec and greater. There is no evidence of a thrombus within the left atrial appendage or within the left atrium proper. 2. There is no evidence of shunt across the anterior atrial septum. 3. The right atrium appears to be unremarkable. 4. The left atrium may be slightly enlarged, as well as the main pulmonary artery. 5. The pulmonic valve is grossly normal. 6. The aortic valve has 3 cusps. They open normally. Color flow mapping is unremarkable. 7. The mitral valve also appears to be grossly within normal range. 8. The aortic root was not dilated. 9. The left ventricle showed preserved left ventricular systolic function, ejection fraction grossly estimated at 55% to 60%. 10.The right ventricle appeared to be unremarkable. 11.The descending thoracic aorta showed diffused moderate degree of smooth plaque without ulceration or debris. 12.There is no pericardial effusion. SUMMARY: This transesophageal echocardiogram shows no evidence of thrombus. Cardioversion may be performed with a low risk for embolic events. cc: MD Thuy Arias PA Scott A. Matthews, MD
--- NOTE | 2018-09-11 08:58 | CARDIAC CATH REPORT ---
PROCEDURE DATE : 09/10/2018 PROCEDURE: Direct-current cardioversion. INDICATION: Persistent atrial fibrillation. DESCRIPTION: The patient was brought to the cardiac outside laborer. A ELOY was carried out first to rule out thrombus. After completing the ELOY, the patient was continued on IV sedation per Anesthesia, Dr. Gomez's services. Pads were positioned in anterior and posterior location. He received a single synchronized countershock to the chest cage consisting of 150 rivas/second. He converted from atrial fibrillation to sinus rhythm. He woke up from the effects from the anesthesia without deficits. SUMMARY: In summary, there was successful cardioversion from atrial fibrillation to sinus rhythm. RECOMMENDATION: Patient to continue current therapy with metoprolol and anticoagulants. Follow up with his established physicians. cc: MD Jeffy Arias MD
== END 2018-09-10 19:15 | disposition home or self-care (01) | DRG 336 ==
LOC: DIRADM 13:50 → 3N 14:17 → ICU 09-04 20:21 → 4N 09-08 11:53
PROVIDERS: ADMIT Internal Medicine; ATTEND Internal Medicine
CPT/HCPCS: 74176; 74250; 80048; 80053; 81001; 82150; 82550; 83690; 83735; 84443; 84484; 85025; 85027; 85610; 85730; 87324; 92960; 93005; 93010; 93306; 93312; 94761; 94799; 97162; 97530; A9270; C9113; C9290; J0282; J0330; J1100; J1160; J1335; J1650; J2370; J2405; J2550; J3480; J3486; J7030; J7060; J7120; S0020; S0028; S0164